=== PATIENT | female | born 1985 | race Caucasian/White ===

== ENCOUNTER 2019-01-24 15:19 | Emergency (ER) | payer MEDICAID, SELFPAY ==
[2019-01-24] MEDS ORDERED: Azithromycin 250 MG TAB ONE (16:09)
== END 2019-01-24 16:20 | disposition home or self-care (01) ==
LOC: MADERS 15:19
DX: J02.0 Streptococcal pharyngitis (principal); J20.9 Acute bronchitis, unspecified; F17.210 Nicotine dependence, cigarettes, uncomplicated; Z71.6 Tobacco abuse counseling
CPT/HCPCS: 99406